=== PATIENT | male | born 1955 | race Two or more races ===

== ENCOUNTER 2022-01-12 07:27 | Day surgery (SDC) | payer BC ==
[2022-01-12] MEDS ORDERED: IRON SUCROSE INJECTION 200 MG in SODIUM CHLORIDE 100 ML IVPB ONE (10:00)
[2022-01-12 13:00] VITALS: TEMP 98.3
[2022-01-12 13:49] VITALS: BP 130/76; PULSE 79
== END 2022-01-12 14:00 | disposition home or self-care (01) ==
LOC: JONCNONCHE 07:27
PROVIDERS: ATTEND Internal Medicine Hematology & Oncology
PROC: 3E033GC Introduction of Other Therapeutic Substance into Peripheral Vein, Percutaneous Approach (ICD-10-PCS; principal; 2022-01-12)
DX: E61.1 Iron deficiency (principal)
CPT/HCPCS: 96365; J1756

== ENCOUNTER 2022-01-19 07:03 | Day surgery (SDC) | payer BC ==
[2022-01-19] MEDS ORDERED: IRON SUCROSE INJECTION 200 MG in SODIUM CHLORIDE 100 ML IVPB ONE (10:00)
[2022-01-19 18:03] VITALS: BP 146/73; PULSE 77; TEMP 97.9
== END 2022-01-19 14:20 | disposition home or self-care (01) ==
LOC: JONCNONCHE 07:03
PROVIDERS: ATTEND Internal Medicine Hematology & Oncology
PROC: 3E033GC Introduction of Other Therapeutic Substance into Peripheral Vein, Percutaneous Approach (ICD-10-PCS; principal; 2022-01-19)
DX: D50.9 Iron deficiency anemia, unspecified (principal)
CPT/HCPCS: 96365; J1756

== ENCOUNTER 2022-01-27 06:37 | Day surgery (SDC) | payer BC ==
[2022-01-27] MEDS ORDERED: IRON SUCROSE INJECTION 200 MG in SODIUM CHLORIDE 100 ML IVPB ONE (10:00)
[2022-01-27 12:55] VITALS: TEMP 97.9
[2022-01-27 14:35] VITALS: BP 125/66; PULSE 81
== END 2022-01-27 13:55 | disposition home or self-care (01) ==
LOC: JONCNONCHE 06:37
PROVIDERS: ATTEND Internal Medicine Hematology & Oncology
PROC: 3E033GC Introduction of Other Therapeutic Substance into Peripheral Vein, Percutaneous Approach (ICD-10-PCS; principal; 2022-01-27)
DX: D50.9 Iron deficiency anemia, unspecified (principal)
CPT/HCPCS: 96365; J1756

== ENCOUNTER 2022-02-02 08:25 | Day surgery (SDC) | payer BC ==
[2022-02-02] MEDS ORDERED: IRON SUCROSE INJECTION 200 MG in SODIUM CHLORIDE 100 ML IVPB ONE (10:00)
[2022-02-02 17:43] VITALS: TEMP 98.3
[2022-02-02 17:45] VITALS: BP 161/80; PULSE 80
== END 2022-02-02 14:15 | disposition home or self-care (01) ==
LOC: JONCNONCHE 08:25
PROVIDERS: ATTEND Internal Medicine Hematology & Oncology
PROC: 3E033GC Introduction of Other Therapeutic Substance into Peripheral Vein, Percutaneous Approach (ICD-10-PCS; principal; 2022-02-02)
DX: E61.1 Iron deficiency (principal)
CPT/HCPCS: 96365; J1756